=== PATIENT | female | born 1960 | race African-American/Black ===

== ENCOUNTER 2017-10-23 13:42 | Emergency (ER) | END 2017-10-23 16:56 | disposition home or self-care (01) ==

== ENCOUNTER 2018-06-29 17:12 | Emergency (ER) | payer MEDICARE, OTHER ==
[~2018-06-29] VITALS: Wt 66.0 kg
[~2018-06-29 17:12] MED LIST: ONDA4TAB14 PO
[2018-06-29] MEDS ORDERED: SOD CHLORIDE 0.9% 1,000 ML IV STA (19:10)
[2018-06-29] MEDS ORDERED: ONDANSETRON 4 MG INJ IV STA (19:10)
[2018-06-29] MEDS ORDERED: morphine 4 MG/ML VIAL IV STA (19:10)
--- NOTE | 2018-06-29 19:45 | ERD ---
ER Documentation Chief Complaint Chief Complaint bib self, cc: chest pain and pressure on chest, abd. pain x 1 day HPI This is a 58-year-old female who is here for epigastric pain with nausea vomiting today. She said she developed epigastric pain this afternoon described as a ache and sometimes sharp and made her vomit a few times that was nonbilious nonbloody. No diarrhea. The patient says that she has some lung masses that a re getting biopsy on Wednesday to rule out cancer. She says after she threw up her chest felt sore for a few minutes and then resolved. She is not having any chest pressure jaw pain elbow pain radiation of pain no difficulty breathing or fever ROS All systems reviewed and are negative except as per history of present illness. Medications Home Meds Active Scripts Ondansetron Hcl* (Zofran*) 4 Mg Tablet, 4 MG PO Q6H for NAUSEA AND/OR VOMITING, #30 TAB Prov:MOHINI PIERRE DO 06/29/18 Ondansetron (Ondansetron Odt) 4 Mg Tab.rapdis, 4 MG PO Q6H PRN for NAUSEA AND/OR VOMITING, #10 TAB Prov:SIXTO RUCKER MD 10/23/17 Allergies Allergies: Uncoded Allergies: CAN'T TAKE ANY MEDICATIONS (Allergy, Unknown, 10/23/17) PMhx/Soc History of Surgery: No Anesthesia Reaction: No Hx Neurological Disorder: Yes ("muscle/coordination problem") Hx Respiratory Disorders: No Hx Cardiac Disorders: No Hx Psychiatric Problems: No Hx Miscellaneous Medical Probl: No Hx Alcohol Use: No Hx Substance Use: No Hx Tobacco Use: No Smoking Status: Never smoker FmHx Family History: No coronary disease Physical Exam Vitals Vital Signs Date Temp Pulse Resp B/P (MAP) Pulse Ox O2 O2 Flow FiO2 Time Delivery Rate 06/29/18 72 21 141/71 100 Room Air 19:35 (94) 06/29/18 98.3 101 19 143/73 100 17:23 (96) Physical Exam Const: Well-developed, well-nourished Head: Atraumatic, normocephalic Eyes: Normal Conjunctiva, PERRLA, EOMI, normal sclera, no nystagmus ENT: Normal External Ears, Nose and Mouth, moist mucus membranes. Neck: Full range of motion. No meningismus, no lymphadenopathy. Resp: Clear to auscultation bilaterally, no wheezing, rhonchi, rales Cardio: Regular rate and rhythm, no murmurs, S1 S2 present Abd: Soft, gastric mild tenderness, non distended. Normal bowel sounds, no guarding or rebound, no pulsitile abdominal masses or bruits Skin: No petechiae or rashes, no ecchymosis , no maculopapular rash Back: No midline or flank tenderness Ext: No cyanosis, or edema, FROM x 4, normal inspection, neurovascularly intact x 4 Neur: Awake and alert, STR 5/5 x 4, sensation intact x 4, no focal findings, cerebellum intact Psych: Normal Mood and Affect Result Diagram: 06/29/18189906/29/181899 Results 24 hrs Laboratory Tests Test 06/29/18 19:00 White Blood Count 5.6 10^3/ul Red Blood Count 4.07 10^6/ul Hemoglobin 12.7 g/dl Hematocrit 37.9 % Mean Corpuscular Volume 93.1 fl Mean Corpuscular Hemoglobin 31.2 pg Mean Corpuscular Hemoglobin Concent 33.5 g/dl Red Cell Distribution Width 11.4 % Platelet Count 156 10^3/UL Mean Platelet Volume 8.8 fl Immature Granulocytes % 0.400 % Neutrophils % 60.2 % Lymphocytes % 30.9 % Monocytes % 6.8 % Eosinophils % 1.3 % Basophils % 0.4 % Nucleated Red Blood Cells % 0.0 /100WBC Immature Granulocytes # 0.020 10^3/ul Neutrophils # 3.4 10^3/ul Lymphocytes # 1.7 10^3/ul Monocytes # 0.4 10^3/ul Eosinophils # 0.1 10^3/ul Basophils # 0.0 10^3/ul Nucleated Red Blood Cells # 0.0 10^3/ul Sodium Level 142 mmol/L Potassium Level 3.7 mmol/L Chloride Level 105 mmol/L Carbon Dioxide Level 30 mmol/L Anion Gap 7 Blood Urea Nitrogen 15 mg/dl Creatinine 0.68 mg/dl Est Glomerular Filtrat Rate mL/min > 60 mL/min Glucose Level 94 mg/dl Calcium Level 9.5 mg/dl Total Bilirubin 0.2 mg/dl Direct Bilirubin 0.00 mg/dl Indirect Bilirubin 0.2 mg/dl Aspartate Amino Transf (AST/SGOT) 29 IU/L Alanine Aminotransferase (ALT/SGPT) 15 IU/L Alkaline Phosphatase 97 IU/L Troponin I < 0.012 ng/ml Total Protein 7.5 g/dl Albumin 4.3 g/dl Globulin 3.20 g/dl Albumin/Globulin Ratio 1.34 Lipase 49 U/L Current Medications Medications Dose Sig/Adry Start Time Status Last (Trade) Ordered Route PRN Stop Time Admin Dose Reason Admin Sodium 1,000 ml @ Q1H STAT 06/29/18 DC 06/29/18 Chloride 1,000 mls/hr IV 19:10 19:18 06/29/18 20:09 Morphine 4 mg ONCE STAT 06/29/18 DC Sulfate IV 19:10 (morphine) 06/29/18 19:12 Ondansetron 4 mg ONCE STAT 06/29/18 DC HCl (Zofran IV 19:10 Inj) 06/29/18 19:12 IV Flush 10 ml STK-MED 06/29/18 DC (NS 10 ml) ONCE .ROUTE 20:13 06/29/18 20:14 Sodium 100 ml @ ud STK-MED 06/29/18 DC Chloride ONCE .ROUTE 20:13 06/29/18 20:14 Iohexol 150 ml STK-MED 06/29/18 DC (Omnipaque ONCE .ROUTE 20:13 300mg/ ml) 06/29/18 20:14 Procedures/MDM EKG: Rate/Rhythm: Sinus tachycardia heart rate 108 QRS, ST, QT: NORMAL HI, QRS, QT] Impression: NORMAL EKG Patient: VASQUEZ HURST : 1960 Age: 58 Sex: F MR #: [id number] DOS: 06/29/181909 Ordering MD: MOHINI PIERRE DO Location: E/R Room/Bed: PROCEDURE: CT Abdomen and pelvis with contrast. CLINICAL INDICATION: 58 year-old female Abdominal Pain TECHNIQUE: Routine abdominopelvic CT following the administration of intravenous contrast. Coronal and sagittal reformats were provided. DICOM images are available. Contrast dose: 100 cc of Omnipaque 300. Oral contrast was not administered. Radiation dose: CTDI (mGy): 12.91 mGy and DLP(mGy-cm): 673.11 mGy.cm One or more of the following dose reduction techniques were used: - Automated exposure control. - Adjustment of the mA and/or kV according to patient size. - Use of iterative reconstruction technique. COMPARISON: CT ABDOMEN 04/02/2014. FINDINGS: Lower Thorax: Visualized lung bases are clear. Liver: The liver is normal in overall morphology and enhancement. No focal mass lesion identified, allowing for absence of multiphase imaging. Biliary/gallbladder: Normal CT appearance of the gallbladder without calcified gallstones. No evidence of intra or extrahepatic biliary duct dilatation. Pancreas: Overall normal morphology and attenuation. No evidence of peripancreatic fluid or stranding. Stomach/Duodenum: The stomach is partially collapsed, but grossly unremarkable. Spleen: Normal in size and morphology without focal lesion. Adrenals: No adrenal masses identified. Kidneys: Overall symmetric shape, size, and attenuation. There is nonobstructing punctate calculi in the right mid kidney and left kidney upper and lower poles. Sub-centimeter low attenuation in the left mid kidney is smaller in size compared to prior CT. No evidence of obstructing urolithiasis or hydroureteronephrosis. Retroperitoneum: No evidence of aortic aneurysm. No evidence of retroperitoneal adenopathy. Mesentery/Peritoneum: No evidence of free fluid or air. No mesenteric adenopathy identified. Hollow viscera:Allowing for variable degrees of distension, the CT appearance of the bowel loops are unremarkable. Appendix is normal. There is formed stool within the colonic loops. Pelvis/Reproductive organs: No pelvic masses or sidewall adenopathy identified. No free fluid identified in the pelvis. Musculoskeletal: The bones are osteopenic especially in the sacrum and iliac bones similar to prior CT. No osseous destructive lesions identified. IMPRESSION: No CT evidence of abdominopelvic mass, lymphadenopathy, or focal acute inflammatory process. No evidence of free fluid or air. Normal appendix. RPTAT: EE Physician Caity Davidson Date Time Electronically viewed and signed by Physician Caity Davidson on 06/29/2018 20:44 rP/ CC: MOHINI PIERRE DO [id number] Patient states she feels better. No acute events on CT scan or blood work. Patient said she was seen in outside ER 4 months ago where she was admitted for chest pain she had a cardiac workup including cardiac cath which showed normal coronary vessels. Discharge home with Zofran and observation Patient feels much better at this time, and vital signs are normal, symptoms have improved. I did give strict instructions to return to the ED if symptoms continue or worsen, patient will otherwise follow-up with primary care physician. Patient understood instructions and agreed to plan. Disclaimer: Inadvertent spelling and grammatical errors are likely due to [employer]/dictation software use and do not reflect on the overall quality of patient care. Also, please note that the electronic time recorded on this note does not necessarily reflect the actual time of the patient encounter. Departure Diagnosis: Primary Impression: Abdominal pain Abdominal location: epigastric Qualified Codes: R10.13 - Epigastric pain Additional Impression: Vomiting Vomiting type: unspecified Vomiting Intractability: unspecified Nausea presence: unspecified Qualified Codes: R11.10 - Vomiting, unspecified Condition: Stable MOHINI PIERRE DO Jun 29, 2018 19:45
[2018-06-29] MEDS ORDERED: IOHEXOL 300MG/ML 150 ML BTL ONE (20:13)
[2018-06-29] MEDS ORDERED: SOD CHLORIDE 0.9% 100 ML ONE (20:13)
[2018-06-29] MEDS ORDERED: ONDA4TAB8 PO (21:54)
[2018-06-29 22:02] VITALS: BP 123/78; PULSE 80; RESP 19
== END 2018-06-29 22:15 | disposition home or self-care (01) ==
LOC: E/R 17:12
DX: R10.13 Epigastric pain (principal); R11.10 Vomiting, unspecified
CPT/HCPCS: 36415; 74177; 80053; 83690; 84484; 85025; 93005; 99285; J7030; Q9967; J2270; J2405